=== PATIENT | female | born 1985 | race African-American/Black ===

== ENCOUNTER 2019-04-16 12:44 | Emergency (ER) | payer OTHER ==
[~2019-04-16] VITALS: Ht 157.5 cm; Wt 59.0 kg
[2019-04-16 13:20] LABS: BILIRUBIN,URINE NEGATIVE (NEG); CLARITY,URINE CLOUDY; COLOR,URINE YELLOW; NITRITE,URINE NEGATIVE (NEG); PH,URINE 8.5; PROTEIN,URINE NEGATIVE (NEG-TRACE); UROBILINOGEN,URINE 0.2 mg/dL (0.2 mg/dL)
[2019-04-16 13:29] LABS: SQUAMOUS EPITHELIAL CELL,UR OCC /LPF; WBC,URINE OCC /HPF (0-4)
[2019-04-16 13:30] LABS: AMORPHOUS SEDIMENT,UR PRESENT /HPF; BACTERIA,URINE 0 /HPF (0-FEW); RBC,URINE 0 /HPF (0-2)
[2019-04-16] MEDS ORDERED: IBUPROFEN 200 MG TABLET. PO ONE (13:30)
--- NOTE | 2019-04-16 13:50 | PHYS DOC ---
Past Medical History Past Medical History: No Pertinent History Past Surgical History: Tubal ligation Alcohol Use: Occasionally Drug Use: Marijuana Adult General Chief Complaint Chief Complaint: ABDOMINAL PAIN HPI HPI 34 y/o female presents to ER via POV for c/o suprapubic and lt lower abd pain which started this morning after sexual intercourse. Patient reports she has had intermittent episodes of this type of pain for several years. She reports she has had a tubal ligation and has been with her partner for 3 years. She denies urinary symptoms, vaginal bleeding, or pain during sexual intercourse. Pt reports her is uncircumcised and she is concerned of possible bacterial infection. 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 Pt denies fever, V/D, or recent illness. Pt reports she felt fine this morning. She denies any OTC meds for pain. Review of Systems Review of Systems Constitutional: Denies fever or chills [] Eyes: Denies change in visual acuity, redness, or eye pain [] HENT: Denies nasal congestion or sore throat [] Respiratory: Denies cough or shortness of breath [] Cardiovascular: No additional information not addressed in HPI [] GI: Denies nausea, vomiting, bloody stools or diarrhea. Reports mid suprapubic/lt lower abd pain : Denies dysuria or hematuria. Reports vaginal discharge Musculoskeletal: Denies back pain or joint pain [] Integument: Denies rash or skin lesions [] Neurologic: Denies headache, focal weakness or sensory changes [] All other systems were reviewed and found to be within normal limits, except as documented in this note. Current Medications Current Medications Current Medications Medications (Trade) Dose Ordered Sig/Laura Start Time Stop Time Status Last Admin Dose Admin Ibuprofen (Motrin) 600 mg 1X ONCE 04/16/19 13:30 04/16/19 13:31 UNV Physical Exam Physical Exam Constitutional: Well developed, well nourished, no acute distress, non-toxic appearance. [] HENT: Normocephalic, atraumatic, oropharynx moist, nose normal. [] Eyes: Pupils equal, conjunctiva normal, no discharge. [] Neck: Normal range of motion, no tenderness, supple, no stridor. [] Cardiovascular: Heart rate regular rhythm, no murmur [] Lungs & Thorax: Bilateral breath sounds clear to auscultation- resp. equal/nonlabored Abdomen: Bowel sounds normal, soft- no distention/rigidity, tender mid suprapubic/lt lower abd, no masses, no pulsatile masses. [] Skin: Warm, dry, no erythema, no rash. [] Back: No tenderness, no CVA tenderness. [] Extremities: No tenderness, no cyanosis, no clubbing, ROM intact, no edema. [] Neurologic: Alert and oriented X 3, normal motor function, normal sensory function, no focal deficits noted. [] Psychologic: Affect normal, judgement normal, mood normal. [] Current Patient Data Vital Signs Vital Signs Date Time Temp Pulse Resp B/P (MAP) Pulse Ox O2 Delivery O2 Flow Rate FiO2 04/16/19 13:11 98.5 70 18 135/78 (97) 100 Room Air 98.5 Lab Values Laboratory Tests Test 04/16/19 13:00 04/16/19 13:06 Urine Collection Type Unknown Urine Color Yellow Urine Clarity Cloudy Urine pH 8.5 Urine Specific [place] 1.020 Urine Protein Negative mg/dL (NEG-TRACE) Urine Glucose (UA) Negative mg/dL (NEG) Urine Ketones (Stick) Negative mg/dL (NEG) Urine Blood Negative (NEG) Urine Nitrite Negative (NEG) Urine Bilirubin Negative (NEG) Urine Urobilinogen Dipstick 0.2 mg/dL (0.2 mg/dL) Urine Leukocyte Esterase Negative (NEG) Urine RBC 0 /HPF (0-2) Urine WBC Occ /HPF (0-4) Urine Squamous Epithelial Cells Occ /LPF Urine Amorphous Sediment Present /HPF Urine Bacteria 0 /HPF (0-FEW) POC Urine HCG, Qualitative Hcg negative (Negative) Microbiology 04/16/19 Wet Prep - Final, Complete EKG EKG PROCEDURE: PELVIS COMPLETE Examination: Ultrasound pelvis HISTORY: History of suprapubic, left adnexal pain COMPARISON: None available. FINDINGS: The uterus measures 9.0 x 4.8 x 4.4 cm. Endometrium measures 1.3 cm in thickness. The right ovary measures 4.1 x 3.0 x 2.0 cm. The left ovary measures 6.8 x 3.8 x 4.5 cm. Blood flow identified in the right and left ovaries. There is a complex appearing septated cystic structure identified in the left ovary measuring 4.7 cm. IMPRESSION: 1. Complex appearing septated cystic structure identified in the left ovary measuring 4.7 cm could be a hemorrhagic cyst. Close interval follow-up examination is recommended. 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 (See chart for details) 1435: Pt was evaluated in the ER for complaints of suprapubic and left-sided lower abdominal pain. Patient reports pain started following sexual intercourse today and she stated she has had this intermittently for a while. UA was negative for infection and UCG was negative. Patient had pelvic exam done and she did have malodorous yellowish discharge which was discussed with her as well as clue cells on her wet mount. Discussed plans for treatment with prescription of Flagyl. Patient aware GC and chlamydia results pending and discuss prophylactic treatment however patient is not wanting any treatment at this time as she has no concerns for other STDs. 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 Discussed use of [id number] Tylenol and/or ibuprofen for pain when necessary. Patient is in no visible distress during this discussion nontoxic in appearance and comfortable with home discharge plan as discussed. Education provided on signs and symptoms to return to ER. Discharge instructions were discussed. Dragon Disclaimer Dragon Disclaimer This electronic medical record was generated, in whole or in part, using a voice recognition dictation system. Departure Departure Impression: Primary Impression: Abdominal pain Additional Impressions: Ovarian cyst Bacterial vaginosis Disposition: HOME, SELF-CARE Condition: STABLE Referrals: UNKNOWN PCP NAME (PCP) Patient Instructions: Abdominal Pain, Bacterial Vaginosis, Ovarian Cyst, Pelvic Rest Additional Instructions: Drink plenty of water daily. Tylenol and/or ibuprofen as needed for pain as directed on container. Follow-up with your [employer] for reevaluation and further care. Discussed your ultrasound results with left ovarian cyst reported as this will need further monitoring and reevaluation. Avoid sexual intercourse or anything inserted vaginally until pain improves. Scripts Metronidazole (FLAGYL) 500 Mg Tablet 1 TAB PO BID, #14 TAB 0 Refills Avoid drinking alcohol while taking this medication and for 3 days following completion of prescription Prov: NOHELIA SCHAEFER APRN 04/16/19 Problem Qualifiers NOHELIA SCHAEFER APRN Apr 16, 2019 13:50
[2019-04-16 14:18] VITALS: BP 126/71
--- NOTE | 2019-04-16 14:30 | RAD ---
Examination: Ultrasound pelvis HISTORY: History of suprapubic, left adnexal pain COMPARISON: None available. FINDINGS: The uterus measures 9.0 x 4.8 x 4.4 cm. Endometrium measures 1.3 cm in thickness. The right ovary measures 4.1 x 3.0 x 2.0 cm. The left ovary measures 6.8 x 3.8 x 4.5 cm. Blood flow identified in the right and left ovaries. There is a complex appearing septated cystic structure identified in the left ovary measuring 4.7 cm. IMPRESSION: 1. Complex appearing septated cystic structure identified in the left ovary measuring 4.7 cm could be a hemorrhagic cyst. Close interval follow-up examination is recommended. Electronically signed by: Praveen Griffin MD (04/16/2019 2:27 PM) [place] [id number]
[2019-04-16] MEDS ORDERED: METR500T PO (14:48)
[2019-04-17 17:13] LABS: GC PROBE Negative (Negative)
== END 2019-04-16 15:04 | disposition home or self-care (01) ==
LOC: ER 12:44
DX: N83.202 Unspecified ovarian cyst, left side (principal); N76.0 Acute vaginitis; B96.89 Other specified bacterial agents as the cause of diseases classified elsewhere; Z98.51 Tubal ligation status
CPT/HCPCS: 76856; 81001; 81025; 87491; 87591; 99285; Q0111